=== PATIENT | female | born 1975 | race African-American/Black ===

== ENCOUNTER 2018-08-20 19:53 | Emergency (ER) | payer BC ==
[2018-08-20] MEDS ORDERED: methylPREDNISolone Sod Succ/PF 125 MG/2 ML VIAL ONE (20:31)
--- NOTE | 2018-08-20 21:18 | RAD ---
PA AND LATERAL VIEWS OF CHEST: 08/20/18 HISTORY: Cough. FINDINGS: The heart size is normal. No focal areas of consolidation, pneumothoraces or pleural effusions are se en. No acute osseous abnormality identified. IMPRESSION: No acute process. POS: [facility]
[2018-08-20] MEDS ORDERED: Azithromycin 250 MG TAB ONE (22:12)
== END 2018-08-20 22:39 | disposition home or self-care (01) ==
LOC: ERS 19:53
DX: J20.9 Acute bronchitis, unspecified (principal); K21.9 Gastro-esophageal reflux disease without esophagitis
CPT/HCPCS: 71046; 94640; 96372; J2930; J7620

== ENCOUNTER 2019-01-25 11:26 | Emergency (ER) | payer BC ==
[2019-01-25 12:11] LABS: #Basophils 0.1 thou/uL (0.0-0.2); #Eosinphils 0.3 thou/uL (0.0-0.7); #Lymphocytes 3.8 thou/uL (1.20-3.40); #Monocytes 0.5 thou/uL (0.11-0.59); #Neutrophils 4.1 thou/uL (1.40-6.50); %Basophils 1.4 % (0.0-1.0); %Eosinophils 3.7 % (0.0-10.0); %Lymphocytes 42.7 % (21.0-51.0); %Monocytes 5.6 % (0.0-10.0); %Neutrophils 46.5 % (42.0-75.0); Hemoglobin 14.2 g/dL (12.0-16.0); Mean Corpuscular HGB CONC 34.1 g/dL (32.0-36.0); Mean Corpuscular Hemoglobin 28.4 pg (27.0-31.0); Mean Corpuscular Volume 83.4 fL (78.0-98.0); Platelet Count 416 thou/uL (130-400); RBC Distribution Width 14.6 % (11.5-14.5); Red Blood Cell (RBC) Count 5.01 mill/uL (4.20-5.40); White Blood Cell (WBC) Count 8.8 thou/uL (4.8-10.8)
--- NOTE | 2019-01-25 12:16 | RAD ---
EXAM: Chest PA and lateral: HISTORY: Cough. Headache. Abdominal pain COMPARISON: 08/20/2018 FINDINGS: Heart: Normal cardiac silhouette Aorta: Unremarkable Pulmonary vessels: Normal Costophrenic angles: Costophrenic angles are clear. Lungs: No consolidation or masses. Pneumothorax: No pneumothorax Osseous structures: No osseous abnormalities IMPRESSION: No acute cardiopulmonary process.
[2019-01-25 12:29] LABS: BHCG - Serum Negative (NEGATIVE); Pregs Control Background? CLEAR/WHITE (CLR/WHITE); Pregs Control Bar Appear? YES (CONTROL BAR)
[2019-01-25 12:32] LABS: ALT (SGPT) 16 U/L (8-55); AST (SGOT) 16 U/L (5-34); Albumin 3.9 g/dL (3.5-5.0); Alkaline Phosphatase 119 U/L (40-150); Anion Gap 15 mmol/L (10-20); BUN (Urea Nitrogen) 12 mg/dL (7.0-18.7); Bilirubin, Total 0.2 mg/dL (0.2-1.2); Calc. Creatinine Clearance 0 mL/min (70-130); Calcium 9.2 mg/dL (7.8-10.44); Carbon Dioxide 23 mmol/L (22-29); Chloride 106 mmol/L (98-107); Estimated GFR-MDRD Greater than 90; Globulin 3.7 g/dL (2.4-3.5); Glucose 95 mg/dL (70-105); Potassium 4.3 mmol/L (3.5-5.1); Protein, Total 7.6 g/dL (6.0-8.3); Sodium 140 mmol/L (136-145)
[2019-01-25] MEDS ORDERED: Ondansetron PF 4 MG/2 ML Vial ONE (12:45)
[2019-01-25] MEDS ORDERED: Ketorolac Tromethamine 30 MG/ML VIAL ONE (12:45)
[2019-01-25 13:16] LABS: Bilirubin Negative (Negative); Blood, Urine Trace (Negative); Glucose, Urine (Dipstick) Negative (Negative); Leukocyte Negative (Negative); Nitrite Negative (Negative); Protein, Urine (Dipstick) Negative (Neg-Trace); Urobilinogen 0.2 mg/dL (Less than 2)
[2019-01-25 13:21] LABS: Clarity Clear (Clear)
[2019-01-25 13:22] LABS: Bacteria/HPF None Seen HPF (None Seen); RBC/HPF None Seen HPF (0-3); Squamous Epithelial 0-3 HPF (0-3); WBC/HPF None Seen HPF (0-3)
== END 2019-01-25 14:38 | disposition home or self-care (01) ==
LOC: ERS 11:26
DX: J06.9 Acute upper respiratory infection, unspecified (principal)
CPT/HCPCS: 36415; 71046; 80053; 81003; 81015; 84703; 85025; 93005; 94760; 96361; 96374; 96375; J1885; J2405